=== PATIENT | male | born 1955 | race Caucasian/White ===

== ENCOUNTER → 2024-09-04 09:25 | Outpatient (REF) | payer MEDICARE, SELFPAY | LOC: HWRAD 09:25 | PROVIDERS: ATTENDING PHYSICIAN Family Medicine | DX: R07.9 Chest pain, unspecified (principal) | CPT/HCPCS: 71046 ==

== ENCOUNTER → 2024-09-09 07:31 | Outpatient (REF) | payer MEDICARE, SELFPAY | LOC: HWRCS 07:31 | PROVIDERS: ATTENDING PHYSICIAN Family Medicine; FAMILY PHYSICIAN Family Medicine | DX: R07.9 Chest pain, unspecified (principal) | CPT/HCPCS: 93306 ==

== ENCOUNTER → 2024-09-18 06:44 | Outpatient (REF) | payer MEDICARE, SELFPAY | LOC: RCS 06:44 | PROVIDERS: ATTENDING PHYSICIAN Family Medicine; FAMILY PHYSICIAN Family Medicine | DX: R07.9 Chest pain, unspecified (principal) | CPT/HCPCS: 78452; 93017; A9500; J2785 ==

== ENCOUNTER → 2024-11-20 08:06 | Outpatient (REF) | payer MEDICARE, SELFPAY | LOC: HWRAD 08:06 | PROVIDERS: ATTENDING PHYSICIAN Family Medicine | DX: M79.672 Pain in left foot (principal); Z68.25 Body mass index [BMI] 25.0-25.9, adult | CPT/HCPCS: 73630 ==

== ENCOUNTER → 2025-02-25 08:38 | Outpatient (REF) | payer MEDICARE, SELFPAY | LOC: MRI 3T 08:38 | PROVIDERS: FAMILY PHYSICIAN Family Medicine; REFERRING PHYSICIAN Internal Medicine Gastroenterology | DX: K86.2 Cyst of pancreas (principal) | CPT/HCPCS: 74183; A9575 ==